=== PATIENT | male | born 1940 | race Caucasian/White ===

== ENCOUNTER 2017-01-20 17:25 | Emergency (ER) | payer MEDICARE ==
[2017-01-20 17:42] VITALS: BP 124/55
--- NOTE | 2017-01-20 18:09 | UC ---
Throat Pain/Nasal Ke HPI - HPI Summary HPI Summary: 3 days of Uri congestion cough and sore throat, was with granddaughter last week who had strep, pt has cough and sore throat - History of Current Complaint Chief Complaint: UCRespiratory Stated Complaint: COUGH/CONGEST/SORE THROAT Time Seen by Provider: 01/20/17 17:53 Hx Obtained From: Patient Onset/Duration: Sudden Onset, Lasting Days - 3, Worse Since - today Severity: Moderate Pain Intensity: 3 Pain Scale Used: 0-10 Numeric Cough: Nonproductive Associated Signs & Symptoms: Positive: Wheezing - this morning. Negative: FB Sensation, Drooling, Hoarseness, Sinus Discomfort, Nasal Discharge, Fever - Allergies/Home Medications Allergies/Adverse Reactions: Allergies Allergy/AdvReac Type Severity Reaction Status Date / Time No Known Allergies Allergy Verified 01/20/17 17:42 Home Medications: Home Medications 2 Other Meds For Bp DAILY 01/20/17 [History] Omeprazole CAP* [Prilosec CAP* 20 MG] 20 mg PO DAILY 01/20/17 [History Confirmed 01/20/17] Telmisartan 40 mg PO DAILY 01/20/17 [History Confirmed 01/20/17] PMH/Surg Hx/FS Hx/Imm Hx Previously Healthy: No Cardiovascular History: Hypertension - Surgical History Surgical History: Yes Surgery Procedure, Year, and Place: DETATCHED RETINA WITH SCLERAL BUCKLE ( 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 [place] DR RAJPUT//OR REPORT SCANNED INTO [employer]-OTHER FACILITIES REPORTS),lower back - Family History Known Family History: Positive: None - Social History Occupation: Retired Lives: With Family Alcohol Use: Daily Alcohol Amount: beer daily Substance Use Type: None Smoking Status (MU): Former Smoker Type: Cigarettes Amount Used/How Often: can not recall Length of Time of Smoking/Using Tobacco: can not recall Review of Systems Constitutional: Negative Skin: Negative Eyes: Negative ENT: Sore Throat Respiratory: Cough Cardiovascular: Negative Gastrointestinal: Negative Genitourinary: Negative Motor: Negative Neurovascular: Negative Musculoskeletal: Negative Neurological: Negative Psychological: Negative All Other Systems Reviewed And Are Negative: Yes Physical Exam Triage Information Reviewed: Yes Appearance: Well-Appearing, No Pain Distress, Well-Nourished Vital Signs: Initial Vital Signs Temp 99.5 F 01/20/17 17:35 Pulse 87 01/20/17 17:35 Resp 16 01/20/17 17:35 BP 124/55 01/20/17 17:35 Pulse Ox 99 01/20/17 17:35 Vital Signs Reviewed: Yes Eye Exam: Normal Eyes: Positive: Conjunctiva Clear ENT Exam: Normal ENT: Positive: Normal ENT inspection, Hearing grossly normal, Other: - cerumen impaction---WNL after ear irragation. Negative: Nasal congestion, Nasal drainage, Tonsillar swelling, Tonsillar exudate, Trismus, Muffled/hoarse voice Dental Exam: Normal Neck exam: Normal Neck: Positive: Supple, Nontender, No Lymphadenopathy Respiratory Exam: Normal Respiratory: Positive: Chest non-tender, Lungs clear, Normal breath sounds, No respiratory distress, No accessory muscle use Cardiovascular Exam: Normal Cardiovascular: Positive: RRR, No Murmur, Pulses Normal, Brisk Capillary Refill Musculoskeletal Exam: Normal Musculoskeletal: Positive: Strength Intact, ROM Intact, No Edema Neurological Exam: Normal Neurological: Positive: Alert, Muscle Tone Normal Psychological Exam: Normal Skin Exam: Normal Diagnostics - Laboratory Diagnostic Studies Completed/Ordered: RST (-) Throat Pain/Nasal Course/Dx - Course Course Of Treatment: Robitussin, Ibuprofen, tylenol, increase fluids, follow with pcp prn - Differential Dx/Diagnosis Differential Diagnosis/HQI/PQRI: Influenza, Otitis Media, Pharyngitis, Sinusitis , URI Provider Diagnoses: Uri, cerumen impaction Discharge - Discharge Plan Condition: Stable Disposition: HOME Patient Education Materials: Antitussives (By mouth), Cerumen Impaction (ED), Viral Syndrome (ED) Referrals: Matty Aguirre MD [Primary Care Provider] - 1 Week
== END 2017-01-20 18:30 | disposition home or self-care (01) ==
LOC: UCCORT 17:25
DX: J06.9 Acute upper respiratory infection, unspecified (principal); H61.20 Impacted cerumen, unspecified ear; I10 Essential (primary) hypertension; Z87.891 Personal history of nicotine dependence
CPT/HCPCS: 87651; 99213; G0463

== ENCOUNTER 2018-02-03 15:20 | Emergency (ER) | payer MEDICARE ==
[2018-02-03 15:59] VITALS: BP 99/50
--- NOTE | 2018-02-03 16:05 | UC ---
HPI Febrile Illness - HPI Summary HPI Summary: Started getting fever 2 nights ago, while with at hospital she was diagnosed with pneumonia after being sick all week). Mild cough and maybe ST, but mostly just fever yesterday. Denies n/v/d, urinary symptoms, rashes, or headaches. Today feels very groggy and "out-of-it." Recently traveled to [facility], denies sick contacts - History of Current Complaint Chief Complaint: UCGeneralIllness Time Seen by Provider: 02/03/18 15:37 Hx Obtained From: Patient Onset/Duration: Started Days Ago Timing: Constant Initial Severity: Moderate Current Severity: Moderate Aggravating Factors: Nothing Alleviating Factors: Nothing Associated Signs and Symptoms: Chills - Allergy/Home Medications Allergies/Adverse Reactions: Allergies Allergy/AdvReac Type Severity Reaction Status Date / Time No Known Allergies Allergy Verified 02/03/18 15:53 Home Medications: Home Medications Amlodipine Besylate [Norvasc 5 mg tab] 1 tab DAILY 02/03/18 [History Confirmed 02/03/18] Omeprazole CAP* [Prilosec CAP* 20 MG] 40 mg DAILY 02/03/18 [History Confirmed ] Telmisartan 80 mg DAILY 02/03/18 [History Confirmed 02/03/18] Terazosin CAP* [Hytrin CAP 5 MG*] 1 cap DAILY 02/03/18 [History Confirmed ] PMH/Surg Hx/FS Hx/Imm Hx Cardiovascular History: Hypertension - Surgical History Surgical History: Yes Surgery Procedure, Year, and Place: DETATCHED RETINA WITH SCLERAL BUCKLE ( RETINA 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 [place] DR RAJPUT//OR REPORT SCANNED INTO [employer]-OTHER FACILITIES REPORTS),lower back - Family History Known Family History: Positive: None - Social History Occupation: Retired Lives: With Family Alcohol Use: Daily Alcohol Amount: beer daily Substance Use Type: None Smoking Status (MU): Former Smoker Type: Cigarettes Amount Used/How Often: can not recall Length of Time of Smoking/Using Tobacco: can not recall Review of Systems Constitutional: Fever, Chills, Fatigue Skin: Negative Eyes: Negative ENT: Negative Respiratory: Cough Cardiovascular: Negative Gastrointestinal: Negative Genitourinary: Negative Motor: Negative Neurovascular: Negative Musculoskeletal: Negative Neurological: Negative Psychological: Negative Is Patient Immunocompromised?: No All Other Systems Reviewed And Are Negative: Yes Physical Exam Triage Information Reviewed: Yes Appearance: Well-Appearing, No Pain Distress, Well-Nourished Vital Signs Reviewed: Yes Eye Exam: Normal Eyes: Positive: Conjunctiva Clear ENT Exam: Normal ENT: Positive: Normal ENT inspection, Hearing grossly normal, Pharynx normal, TMs normal Dental Exam: Normal Neck exam: Normal Neck: Positive: Supple, Nontender, No Lymphadenopathy Respiratory: Positive: Chest non-tender, Normal breath sounds, No respiratory distress, No accessory muscle use, Rhonchi - a couple, clear with cough Cardiovascular Exam: Normal Cardiovascular: Positive: RRR, No Murmur Musculoskeletal Exam: Normal Musculoskeletal: Positive: Strength Intact Neurological Exam: Normal Neurological: Positive: Alert Psychological Exam: Normal Skin Exam: Normal Course/Dx - Diagnoses Clinic Provider Diagnoses: fever Discharge - Sign-Out/Discharge Documenting (check all that apply): Patient Departure - Discharge Plan Condition: Stable Disposition: HOME Prescriptions: Azithromycin TAB* [Zithromax TAB (Z-GIRISH) 250 mg #6 tabs] 2 tab PO .TODAY, THEN 1 DAILY #1 girish Patient Education Materials: Fever in Adults (ED) Referrals: Matty Aguirre MD [Primary Care Provider] - 3 Days Additional Instructions: As we discussed, I do not see any convincing evidence that you have pneumonia today. However, since your is currently sick, I have prescribed an antibiotic that you should only start if you get another fever over 100.5 in the next 1-2 days. Your blood pressure was a little low today. I encourage you to drink plenty of fluids and add some extra salty snacks. Please follow up with your primary care provider for any lingering symptoms. - Billing Disposition and Condition Condition: STABLE Disposition: Home
--- NOTE | 2018-02-03 16:27 | RAD ---
HISTORY: fever, exposure to pneumonia COMPARISONS: None VIEWS: 4: Frontal dual-energy and lateral views of the chest. FINDINGS: CARDIOMEDIASTINAL SILHOUETTE: The cardiomediastinal silhouette is normal. CARL: The carl are normal. PLEURA: There is blunting of left costophrenic angle. LUNG PARENCHYMA: The lungs are clear. ABDOMEN: The upper abdomen is clear. There is no subphrenic gas. BONES AND SOFT TISSUES: Degenerative changes are noted along the spine. OTHER: None. IMPRESSION: SMALL LEFT PLEURAL EFFUSION NO ACTIVE CARDIOPULMONARY DISEASE.
== END 2018-02-03 16:38 | disposition home or self-care (01) ==
LOC: UCCORT 15:20
DX: R50.9 Fever, unspecified (principal); Z87.891 Personal history of nicotine dependence
CPT/HCPCS: 71046; 99212; G0463

== ENCOUNTER 2019-07-30 16:05 | Emergency (ER) | payer MEDICARE ==
[2019-07-30 17:26] VITALS: BP 136/57
[2019-07-30 17:49] LABS: Influenza A Molecular Negative (Negative); Influenza B Molecular Negative (Negative)
--- NOTE | 2019-07-30 17:57 | UC ---
Respiratory Complaint HPI - HPI Summary HPI Summary: Pt c/o cough, chest congestion and generalized malaise. - History of Current Complaint Chief Complaint: UCRespiratory Stated Complaint: COUGH,CONGESTION Time Seen by Provider: 07/30/19 17:27 Hx Obtained From: Patient Onset/Duration: Gradual Onset, Lasting Days, Still Present, Worse Since - onset Timing: Constant Severity Initially: Mild Severity Currently: Mild Pain Intensity: 0 Character: Cough: Productive Aggravating Factors: Exertion, Deep Breaths, Recumbent Position Alleviating Factors: Nothing Associated Signs And Symptoms: Positive: Wheezing, URI, Nasal Congestion - Risk Factors Pulmonary Embolism Risk Factors: Recent Travel Cardiac Risk Factors: Negative Pseudomonas Risk Factors: Negative Tuberculosis Risk Factors: Negative - Allergies/Home Medications Allergies/Adverse Reactions: Allergies Allergy/AdvReac Type Severity Reaction Status Date / Time No Known Allergies Allergy Verified 07/30/19 17:22 Home Medications: Home Medications Terazosin CAP* [Hytrin CAP 5 MG*] 1 dose PO SEE INSTRUCTIONS 07/30/19 [History Confirmed 07/30/19] PMH/Surg Hx/FS Hx/Imm Hx Previously Healthy: Yes - Surgical History Surgical History: Yes Surgery Procedure, Year, and Place: DETATCHED RETINA WITH SCLERAL BUCKLE ( 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 LUMBAR (NO HARDWARE); - Family History Known Family History: Positive: Cardiac Disease - Social History Occupation: Retired Lives: With Family Alcohol Use: Daily Alcohol Amount: beer daily Substance Use Type: None Smoking Status (MU): Former Smoker Type: Cigarettes Amount Used/How Often: can not recall Length of Time of Smoking/Using Tobacco: can not recall Have You Smoked in the Last Year: No - Immunization History Most Recent Tetanus Shot: UTD Vaccination Up to Date: Yes Review of Systems All Other Systems Reviewed And Are Negative: Yes Constitutional: Positive: Chills, Fatigue Skin: Positive: Negative Eyes: Positive: Negative Respiratory: Positive: Cough, Other - wheezing, chest congestion Cardiovascular: Positive: Negative Gastrointestinal: Positive: Negative Genitourinary: Positive: Negative Motor: Positive: Negative Neurovascular: Positive: Negative Musculoskeletal: Positive: Negative Neurological/Mental Status: Positive: Negative Psychological: Positive: Negative Is Patient Immunocompromised?: No Physical Exam Triage Information Reviewed: Yes Appearance: Well-Appearing Vital Signs: Initial Vital Signs Temp 98.1 F 07/30/19 17:20 Pulse 72 07/30/19 17:20 Resp 16 07/30/19 17:20 BP 136/57 07/30/19 17:20 Pulse Ox 100 07/30/19 17:20 Vital Signs Reviewed: Yes Eye Exam: Other Eyes: Positive: Other: - cerumen bilateral ear canals. ENT: Positive: Nasal congestion Dental Exam: Normal Neck exam: Normal Respiratory: Positive: Normal breath sounds, No respiratory distress Cardiovascular Exam: Normal Musculoskeletal Exam: Normal Neurological Exam: Normal Psychological Exam: Normal Skin Exam: Normal Respiratory Course/Dx - Course Course Of Treatment: Pt requested to have bilateral ears irrigated - Differential Dx/Diagnosis Differential Diagnosis/HQI/PQRI: Bronchitis, Influenza Provider Diagnosis: Upper respiratory infection Discharge ED - Sign-Out/Discharge Documenting (check all that apply): Patient Departure All imaging exams completed and their final reports reviewed: No Studies - Discharge Plan Condition: Stable Disposition: HOME Prescriptions: Benzonatate CAP* [Tessalon 100 MG CAP*] 100 - 200 mg PO Q8H PRN #30 cap PRN Reason: Cough predniSONE 10 mg TAB [Deltasone 10 MG TAB*] 30 mg PO DAILY #12 tab Patient Education Materials: Cerumen Impaction (ED), Upper Respiratory Infection (ED) Referrals: Matty Aguirre MD [Primary Care Provider] - If Needed - Billing Disposition and Condition Condition: STABLE Disposition: Home
== END 2019-07-30 18:20 | disposition home or self-care (01) ==
LOC: UCCORT 16:05
DX: J06.9 Acute upper respiratory infection, unspecified (principal); H61.23 Impacted cerumen, bilateral; Z87.891 Personal history of nicotine dependence
CPT/HCPCS: 99213; G0463